=== PATIENT | female | born 1945 | race Caucasian/White ===

== ENCOUNTER → 2020-11-13 | Outpatient (CLI) | payer MEDICARE, OTHER ==
[~2020-11-13] MED LIST: LEVAQUIN500 MG PO; TYLENOL W/CODEIN1 E1 PO
[2020-11-13 11:25] LABS: BUN/CREATININE RATIO 18 (0-10)
== END ==
LOC: LAB 10:31
PROVIDERS: Internal Medicine
DX: I27.0 Primary pulmonary hypertension (principal)
CPT/HCPCS: 36415; 80048

== ENCOUNTER → 2020-12-19 | Outpatient (CLI) | payer MEDICARE, OTHER ==
[2020-12-19 09:58] LABS: BUN/CREATININE RATIO 18 (0-10)
== END ==
LOC: LAB 08:14
PROVIDERS: Internal Medicine
DX: R93.1 Abnormal findings on diagnostic imaging of heart and coronary circulation (principal); Z92.21 Personal history of antineoplastic chemotherapy
CPT/HCPCS: 36415; 80048; 83880